=== PATIENT | male | born 1980 | race Caucasian/White ===

== ENCOUNTER 2019-09-28 15:14 | Emergency (ER) | payer OTHER ==
--- NOTE | 2019-09-28 16:07 | EDM.PDOC ---
ED HPI GENERAL MEDICAL PROBLEM - General Chief Complaint: Neuro Symptoms/Deficits Stated Complaint: LEFT SIDE OF FACE NUMBNESS Time Seen by Provider: 09/28/19 15:38 Source of Information: Reports: Patient, RN Notes Reviewed - History of Present Illness INITIAL COMMENTS - FREE TEXT/NARRATIVE: 39 yr old male with onset of L facial numbness yesterday afternoon, sensation that his L eye was not closing as it should and L facial droop. Those sx are more intense today, also has some numbness of his L mouth. No peripheral sx. No Marie, no recent injury. No other sx or recent illness. 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: Other (see below) Other Treatments C JAVA DEVELOPER: visine - Related Data Allergies Allergy/AdvReac Type Severity Reaction Status Date / Time No Known Allergies Allergy Verified 09/28/19 15:24 Home Meds: Home Meds predniSONE [Prednisone] 50 mg PO DAILY #7 tablet 09/28/19 [Rx] valACYclovir [Valtrex] 1,000 mg PO TID #20 tablet 09/28/19 [Rx] Past Medical History - Past Health History Medical/Surgical History: Denies Medical/Surgical History Social & Family History - Tobacco Use Smoking Status *Q: Current Every Day Smoker Years of Tobacco use: 16 Packs/Tins Daily: 1 - Caffeine Use Caffeine Use: Reports: Coffee - Recreational Drug Use Recreational Drug Use: No ED ROS GENERAL - Review of Systems Review Of Systems: See Below Constitutional: Denies: Fever, Chills HEENT: Denies: Ear Pain, Sinus Problem, Throat Pain, Vision Change Respiratory: Denies: Shortness of Breath, Cough Cardiovascular: Denies: Chest Pain GI/Abdominal: Denies: Abdominal Pain, Nausea, Vomiting Musculoskeletal: Denies: Neck Pain, Shoulder Pain, Arm Pain Skin: Denies: Rash Neurological: Reports: Numbness. Denies: Dizziness, Headache, Trouble Speaking, Difficulty Walking, Weakness ED EXAM, NEURO - Physical Exam Exam: See Below General Appearance: Alert, No Apparent Distress Eye Exam: Bilateral Eye: PERRL Throat/Mouth: Normal Inspection Head Exam: Atraumatic. No: Facial Swelling Neck: Supple Respiratory/Chest: Lungs Clear, Normal Breath Sounds Cardiovascular: Regular Rate, Rhythm GI/Abdominal: Soft, Non-Tender Neurological: Alert, Oriented x 3, Other (L facial droop, L lid lag, finger to nose testing normal) Extremities: Normal Inspection, Normal Range of Motion Skin Exam: Warm, Dry, Normal Color Course - Vital Signs Last Recorded V/S: Last Vital Signs Temp 97.6 F 09/28/19 15:27 Pulse 73 09/28/19 15:27 Resp 20 09/28/19 15:27 BP 142/100 H 09/28/19 15:27 Pulse Ox 98 09/28/19 15:27 - Re-Assessments/Exams Free Text/Narrative Re-Assessment/Exam: 09/28/19 16:39 no upper or lower extrem. weakness or findings, head CT not clinically indicated at this time. Departure - Departure Time of Disposition: 16:00 Disposition: Home, Self-Care 01 Condition: Fair Clinical Impression: Cohen's palsy - Discharge Information Prescriptions: predniSONE [Prednisone] 50 mg PO DAILY #7 tablet valACYclovir [Valtrex] 1,000 mg PO TID #20 tablet Instructions: Cohen Palsy, Adult Referrals: PCP,None [Primary Care Provider] - Forms: ED Department Discharge Additional Instructions: valacylovir 1000 mg three times daily for 1 week. Prednisone 50 mg daily for 1 week. Tape or patch L eye lid if needed, especially at night to make sure your cornea does not get too dry. For most people this will resolve over several weeks. Follow up with your regular medical provider as needed. Return to ED as needed if symptoms worsening in any way. Sepsis Event Note (ED) - Evaluation Sepsis Screening Result: No Definite Risk - Focused Exam Vital Signs: Vital Signs Temp Pulse Resp BP Pulse Ox 09/28/19 15:27 97.6 F 73 20 142/100 H 98
== END 2019-09-28 16:30 | disposition home or self-care (01) ==
LOC: JD.ED 15:14
DX: G51.0 Bell's palsy (principal); F17.210 Nicotine dependence, cigarettes, uncomplicated; Z79.899 Other long term (current) drug therapy
CPT/HCPCS: 99283